=== PATIENT | female | born 1945 | race Caucasian/White ===

== ENCOUNTER → 2017-03-08 | Outpatient (CLI) | payer MEDICARE, OTHER ==
[~2017-03-08] MED LIST: ACE3 PO; ACYC800T99 PO; AMOX-559 PO; ASPI-1471 PO; AZIT-1 PO; BARIUM SULFATE 176 GM BTL PO ONE; BARIUM SULFATE 340 GM POWD ONE; BECL8.7H NS; BENZ200C15 PO; BUDE10.25; CEPH-13 PO; CHOL200022 PO; CHOL200074 PO; CHOL500025 PO; CIPR500S3 PO; DUL100/5PT INH; FAMC500T18 PO; FAMC500T19 PO; FERR325T24 PO; FLU180SY9 IM; HYDR200T38 PO; LACT1CAP6 PO; LEVO-85 PO; LEVO50TA86 PO; LIOT5TAB18 PO; METR-1 PO; MINO100C27 PO; MULT-865 PO; NO RX MEDS; OMEG-11 PO; ONDA4TAB PO; OXYGENHOME INH; PHYT100T4 PO; SUMA100T33 PO; SUMA50TA34 PO; THYR32.517 PO; UBID1CAP94 PO; VITA-131 PO; VITA1CAP46 PO
--- NOTE | 2017-03-08 15:53 | RADIOLOGY IMAGING REPORT ---
FACILITY: [facility] - [place] PATIENT NAME: Klaudia Pandey : 1945 MR: [id number] V: [id number] EXAM DATE: ORDERING PHYSICIAN: DILAN ROSSI TECHNOLOGIST: Location: [facility] [place] Patient: Klaudia Pandey : 1945 Visit/Account:[id number] Date of Sevice: 03/08/2017 Exam type: ESOPHAGRAM History: Chest esophageal reflux disease and esophagitis Comparison: None. Findings: There is hyperinflation lung hernandez bilaterally. Double contrast esophagram was performed with thick and thin barium. There is a mild mucosal irregularity seen along the anterior wall of the cervical esophagus. There was a moderate amount of gastroesophageal reflux. There is mild to moderate narrow ing at the distal esophagus however a 12 mm barium tablet did pass freely into the stomach. The fluo roscopy dose area product was 116.62 micro-Mendes per meter squared IMPRESSION: 1. Hyperinflation of the lung hernandez Moderate gastroesophageal reflux with mild to moderate narrowing at the distal esophagus however a 12 mm barium tablet did pass freely into the stomach There was mild mucosal irregularity seen along the anterior wall the cervical esophagus Report Dictated By: Paris Jett MD at 03/08/2017 3:45 PM Report E-Signed By: Paris Jett MD at 03/08/2017 3:49 PM WSN:[email or web address]
== END ==
LOC: RAD 02:54
PROVIDERS: ATTEND Otolaryngology
DX: R91.8 Other nonspecific abnormal finding of lung field (principal); K21.9 Gastro-esophageal reflux disease without esophagitis; K22.2 Esophageal obstruction
CPT/HCPCS: 74220

== ENCOUNTER → 2017-03-29 | Outpatient (CLI) | payer MEDICARE, OTHER ==
[~2017-03-29] MED LIST changes: -BARIUM SULFATE 176 GM BTL PO ONE; -BARIUM SULFATE 340 GM POWD ONE; +PANT40TA65 PO
== END ==
LOC: LAB 07:57
PROVIDERS: ATTEND Physician Assistant
DX: E03.9 Hypothyroidism, unspecified (principal)
CPT/HCPCS: 36415; 84439; 84443; 84481

== ENCOUNTER 2017-04-17 01:49 | Day surgery (SDC) | payer MEDICARE, OTHER ==
[2017-04-17] VITALS (7 sets, daily range): BP systolic 119–142; BP diastolic 73–83
[~2017-04-17] VITALS: Ht 165.1 cm; Wt 50.3 kg
[~2017-04-17 01:49] MED LIST changes: -HYDR200T38 PO; +HYDR200T77 PO
[2017-04-17] MEDS ORDERED: MIDAZOLAM 2 MG/2 ML VIAL IVP PRN (06:30)
[2017-04-17] MEDS ORDERED: LIDOCAINE MPF 1% 5 ML VIAL ONE (06:30)
[2017-04-17] MEDS ORDERED: NORMOSOL R SOLN(*) 1000 ML BAG 1,000 ML IV PRN (06:30)
[2017-04-17] MEDS ORDERED: LIDOCAINE/SOD BICARB 8.4% SYR ID ONE (06:30)
[2017-04-17] MEDS ORDERED: PROPOFOL EMUL(*) 10MG/ML 20 ML 60 ML ONE (06:30)
[2017-04-17] MEDS ORDERED: KETAMINE HCL 500 MG/10 ML VIAL ONE (07:29)
--- NOTE | 2017-04-17 07:52 | Short(Outpt) Discharge Summary ---
Discharge Summary Reason for Hosp/Final Diag: (1) Cough Status: Acute Hospital Course & Plan: EGD with dilation and biopsies completed without problems. (2) GERD (gastroesophageal reflux disease) Status: Chronic Departure Discharge to: Home, Self Care Discharge Instructions Home Meds Active Scripts Pantoprazole Sodium (PANTOPRAZOLE SODIUM) 40 Mg Tablet.dr, 40 MG PO QDAY for 30 Days, #30 TAB.SR 6 Refills Prov:DILAN ROSSI JR, MD 03/13/17 Levothyroxine Sodium (LEVOTHYROXINE SODIUM) 50 Mcg Tablet, 1 TAB PO QDAY for 90 Days, #90 TAB 4 Refills Prov:STACIA SWAIN MD 02/22/17 Sumatriptan Succinate (SUMATRIPTAN SUCCINATE) 100 Mg Tablet, 1 TAB PO ONCE Y for migraine for 30 Days, #9 TAB 4 Refills Prov:STACIA SWAIN MD 02/22/17 Reported Medications Liothyronine Sodium (CYTOMEL) 5 Mcg Tablet, 5 MCG PO DAILY 04/10/17 Oxygen (OXYGEN) Inha, 2 L INH HS, L 12/06/16 Minocycline Hcl (MINOCYCLINE HCL) 100 Mg Capsule, 1 CAP PO DAILY, CAPSULE 12/06/16 Cholecalciferol (Vitamin D3) (VITAMIN D-3) 2,000 Unit Capsule, 1 CAP PO BID, CAPSULE 12/15/14 Vitamin B Complex (VITAMIN B COMPLEX) 1 Each Capsule, 1 EACH PO DAILY, CAPSULE 05/28/14 [place]-3 Fatty Acids/Fish Oil (FISH OIL 1,000 MG CAPSULE) 1 Each Capsule, 1 CAP PO BID, CAPSULE 11/11/13 Multivitamin (DAILY MULTIPLE VITAMIN) 1 Each Tablet, 1 TAB PO DAILY 11/11/13 Ubidecarenone/Vit E Acetate (CO Q-10 100 MG SOFTGEL) 1 Each Capsule, 1 CAP PO DAILY, CAPSULE 11/11/13 Discontinued Scripts Famciclovir (FAMCICLOVIR) 500 Mg Tablet, 500 MG PO TID for 7 Days, #21 TAB 0 Refills Prov:STACIA SWAIN MD 02/22/17 Follow up Referrals: General Surgery - 05/03/17 @ Surgery, General with Candida Delvalle Md You have a follow up appointment scheduled with Dr. Delvalle on 05/03/17, at 11:00am. Diet: Regular Activity: As Tolerated Special Instructions: Your endoscopy was completed without any problems. I didn't find anything obviously abnormal but I biopsied your GE junction where your esophagus empties into your stomach to rule out Goodwin's esophagus. I also passed a dilater through your esophagus and it passed without any resistance or problems. Continue taking the pantoprazole (protonix) until I see you back in my office in 2 weeks. Problem Qualifiers (1) GERD (gastroesophageal reflux disease): Esophagitis presence: without esophagitis Qualified Codes: K21.9 - Gastro- esophageal reflux disease without esophagitis CANDIDA DELVALLE MD Apr 17, 2017 07:52
[2017-04-17] MEDS ORDERED: ALBUTEROL/IPRATROPIUM 3 ML NEB ONE (08:52)
--- NOTE | 2017-04-17 09:21 | EKG ---
FACILITY: [facility] [place] PATIENT NAME: GREGORIO FREY : [id number] MR: [id number] V: [id number] EXAM DATE: ORDERING PHYSICIAN: CANDIDA DELVALLE TECHNOLOGIST: Kaiser Green Reason : PREOP Blood Pressure : / mmHG Vent. Rate : 085 BPM Atrial Rate : 085 BPM P-R Int : 184 ms QRS Dur : 064 ms QT Int : 374 ms P-R-T Axes : 090 -57 030 degrees QTc Int : 445 ms Normal sinus rhythm Left axis deviation Low voltage QRS Cannot rule out Anteroseptal infarct (cited on or before 17-OCT-2012) Abnormal ECG When compared with ECG of 22-APR-2014 10:39, QRS axis shifted left Questionable change in initial forces of Anteroseptal leads Nonspecific T wave abnormality now evident in Anterior leads Confirmed by ALIREZA BELCHER ([id number]) on 04/17/2017 12:32:58 PM Referred By: Confirmed By:ALIREZA BELCHER
== END 2017-04-17 09:37 | disposition home or self-care (01) ==
LOC: OR 01:49
PROVIDERS: ATTEND Surgery
DX: K44.9 Diaphragmatic hernia without obstruction or gangrene (principal)
CPT/HCPCS: 43239; 43248; 88305; 93005; 94640; C1769; J2001; J2704; J3490; J7620

== ENCOUNTER → 2017-05-24 | Outpatient (CLI) | payer MEDICARE, OTHER ==
[~2017-05-24] MED LIST changes: +BENZ100C4 PO; +IPRA3AMP21 IH
[2017-05-24 14:21] LABS: PLATELET COUNT, AUTOMATED 206 K/uL (150-450)
== END ==
LOC: LAB 13:53
PROVIDERS: ATTEND Family Medicine
DX: J06.9 Acute upper respiratory infection, unspecified (principal)
CPT/HCPCS: 36415; 82040; 82247; 82310; 82374; 82435; 82565; 82947; 84075; 84132; 84155; 84295; 84450; 84460; 84520; 85025

== ENCOUNTER → 2017-06-04 | Outpatient (CLI) | payer MEDICARE, OTHER | LOC: LAB 08:09 | PROVIDERS: ATTEND Family Medicine | DX: R53.83 Other fatigue (principal) | CPT/HCPCS: 36415; 84439; 84443; 84481 ==

== ENCOUNTER → 2017-11-29 | Outpatient (CLI) | payer MEDICARE, OTHER ==
[~2017-11-29] MED LIST changes: -CHOL200022 PO; +CHOL200085 PO; +IPRA3AMP10 IH; -IPRA3AMP21 IH; +ZOLM2.5T FT; +ZOLM5TAB3 PO
== END ==
LOC: LAB 11:04
PROVIDERS: ATTEND Family Medicine
DX: R73.09 Other abnormal glucose (principal)
CPT/HCPCS: 83036

== ENCOUNTER → 2017-11-29 | Outpatient (CLI) | payer MEDICARE, OTHER | LOC: LAB 11:08 | PROVIDERS: ATTEND Physician Assistant | DX: Z00.01 Encounter for general adult medical examination with abnormal findings (principal); E03.9 Hypothyroidism, unspecified | CPT/HCPCS: 36415; 84439; 84443; 84481 ==

== ENCOUNTER → 2017-12-20 | Outpatient (CLI) | payer MEDICARE, OTHER ==
--- NOTE | 2017-12-20 12:17 | RADIOLOGY IMAGING REPORT ---
FACILITY: [facility] - [place] PATIENT NAME: Klaudia Pandey : 1945 MR: [id number] V: [id number] EXAM DATE: ORDERING PHYSICIAN: KATRIN MONROE TECHNOLOGIST: Location: [facility] Patient: Klaudia Pandey : 1945 Visit/Account:[id number] Date of Sevice: 12/20/2017 BRAIN W/O CONTRAST Comparisons: None. Additional pertinent history: Migraine headaches with aura TECHNIQUE: Multiplanar, multisequence brain MRI was performed without gadolinium contrast. FINDINGS: Sagittal midline structures and craniocervical junction: Negative. Midline shift: None. Ventricles: Negative. Brain parenchyma: Diffusion weighted imaging: Negative. Gradient sequence: Negative. T2 weighted FLAIR images: Scattered foci of abnormal increased T2 signal within the periventricular and subcortical white matter, nonspecific but likely representing small vessel ischemic change on a chronic basis. Extra-axial spaces: Mild cerebral atrophy. Dural venous sinuses and major arterial flow voids: Negative. Mastoid air cells and paranasal sinuses: Negative. Surrounding soft tissues and orbits: Negative. Impression: 1. Mild age related changes as described above. 2. No evidence of acute intracranial pathology. Report Dictated By: Lloyd Gray MD at 12/20/2017 12:11 PM Report E-Signed By: Lloyd Gray MD at 12/20/2017 12:13 PM WSN:[email or web address]
== END ==
LOC: MRI 10:38
PROVIDERS: ATTEND Psychiatry & Neurology Neurology
DX: R42 Dizziness and giddiness (principal); Z85.6 Personal history of leukemia
CPT/HCPCS: 70551

== ENCOUNTER → 2017-12-27 | Outpatient (CLI) | payer MEDICARE, OTHER ==
[~2017-12-27] MED LIST changes: +ASPI-757 PO; +CALC500T6 PO; +CHOL500016 PO; +FLU180SY11 IM; +OXYC-865 PO; +PNEU0.5D3 IM; +[UNRECOGNIZED DRUG - CODE] IV
== END ==
LOC: RESP 00:25
PROVIDERS: ATTEND Psychiatry & Neurology Neurology
DX: G47.30 Sleep apnea, unspecified (principal); G47.36 Sleep related hypoventilation in conditions classified elsewhere

== ENCOUNTER 2018-01-02 20:02 | Inpatient (IN) | payer MEDICARE, OTHER ==
[~2018-01-02] VITALS: Ht 165.1 cm; Wt 53.1 kg
[~2018-01-02 20:02] MED LIST changes: -ASPI-757 PO; -CALC500T6 PO; -CHOL500016 PO; -OXYC-865 PO; -[UNRECOGNIZED DRUG - CODE] IV
--- NOTE | 2018-01-02 20:16 | ER Report ---
History and Physical Time Seen By MD: 20:16 Hx. of Stated Complaint: around 1900 patient was at [facility] [email or web address] party and fell from standing HPI/ROS CHIEF COMPLAINT: fall, hip pain HISTORY OF PRESENT ILLNESS: This is a 72 year old female. She fell at a family birthday [place] party [place]. Fell onto right hip, now with severe pain. Pain severe with movement, but not bad if lying still. No pain in the leg or back. Has norm al sensation. Allergies: Coded Allergies: No Known Drug Allergies (Verified , 03/31/15) Home Meds Active Scripts Zolmitriptan (ZOLMITRIPTAN) 5 Mg Tablet, 2.5-5 MG PO DAILY PRN for MIGRAINE for 30 Days, #3 TAB Prov:STACIA SWAIN MD 07/23/17 Ipratropium/Albuterol Sulfate (IPRAT-ALBUT 0.5-3(2.5) MG/3 ML) 3 Ml Ampul.neb, 3 ML IH BID for 7 Days, #14 PETER Prov:STACIA SWAIN MD 05/24/17 Levothyroxine Sodium (LEVOTHYROXINE SODIUM) 50 Mcg Tablet, 1 TAB PO QDAY for 90 Days, #90 TAB 4 Refills Prov:STACIA SWAIN MD 02/22/17 Sumatriptan Succinate (SUMATRIPTAN SUCCINATE) 100 Mg Tablet, 1 TAB PO ONCE PRN for migraine for 30 Days, #9 TAB 4 Refills Prov:STACIA SWAIN MD 02/22/17 Reported Medications Liothyronine Sodium (LIOTHYRONINE SODIUM) 10 Mcg/1 Ml Vial, 10 MCG IV, VIAL 01/02/18 Oxygen (OXYGEN) Inha, 2 L INH HS, L 12/06/16 Cholecalciferol (Vitamin D3) (VITAMIN D-3) 2,000 Unit Capsule, 1 CAP PO BID, CAPSULE 12/15/14 [place]-3 Fatty Acids/Fish Oil (FISH OIL 1,000 MG CAPSULE) 1 Each Capsule, 1 CAP P O BID, CAPSULE 11/11/13 Multivitamin (DAILY MULTIPLE VITAMIN) 1 Each Tablet, 1 TAB PO DAILY 11/11/13 Ubidecarenone/Vit E Acetate (CO Q-10 100 MG SOFTGEL) 1 Each Capsule, 1 CAP PO DAILY, CAPSULE 11/11/13 Discontinued Reported Medications Liothyronine Sodium (CYTOMEL) 5 Mcg Tablet, 5 MCG PO DAILY 04/10/17 Minocycline Hcl (MINOCYCLINE HCL) 100 Mg Capsule, 1 CAP PO DAILY, CAPSULE 12/06/16 Vitamin B Complex (VITAMIN B COMPLEX) 1 Each Capsule, 1 EACH PO DAILY, CAPSULE 05/28/14 Discontinued Scripts Benzonatate 100 Mg Cap (TESSALON PERLE 100 MG CAP) 100 Mg Capsule, 100 MG PO TID PRN for cough for 5 Days, #15 CAP Prov:STACIA SWAIN MD 05/24/17 Reviewed Nurses Notes: Yes Hx Smoking: No Smoking Status: Never Smoker Hx Substance Use Disorder: No Hx Alcohol Use: No Constitutional Vital Sign - Last 24 Hours 01/02/18 01/02/18 01/02/18 01/02/18 20:08 20:08 20:26 20:30 Temp 99.2 Pulse 121 Resp 19 B/P (MAP) 166/102 (123) 166/102 152/92 (112) 142/87 (105) Pulse Ox 92 O2 Delivery Room Air 01/02/18 01/02/18 01/02/18 01/02/18 20:32 21:00 21:02 21:07 Pulse 102 101 102 B/P (MAP) 150/90 (110) Pulse Ox 93 92 92 01/02/18 01/02/18 01/02/18 01/02/18 21:30 21:37 22:00 22:07 Pulse 119 135 B/P (MAP) 136/99 (111) 153/97 (115) Pulse Ox 91 93 Physical Exam General: Alert, no acute distress. Musculoskeletal: Pain with palpation over the right hip, anterior and posterior, no pain lower in the thigh. Normal pelvis without stability. Can move the leg and foot, but worsened pain with any attempted movement of the hip. Neuro: Normal sensation. Skin: No skin breakdown. Cardiovascular: Normal capillary refill. Normal DP and PT pulses. Medical Decision Making Data Points Result Diagram: 01/02/18201201/02/182012 Laboratory Hematology Test 01/02/18 20:13 Red Blood Count 5.23 M/uL (4.17-5.56) Mean Corpuscular Volume 90.4 fL (80.0-96.0) Mean Corpuscular Hemoglobin 30.0 pg (26.0-33.0) Mean Corpuscular Hemoglobin Concent 33.2 g/dL (32.0-36.0) Red Cell Distribution Width 14.2 % (11.5-14.5) Mean Platelet Volume 10.1 fL (7.2-11.1) Neutrophils (%) (Auto) % (39.4-72.5) Lymphocytes (%) (Auto) % (17.6-49.6) Monocytes (%) (Auto) % (4.1-12.4) Eosinophils (%) (Auto) % (0.4-6.7) Basophils (%) (Auto) % (0.3-1.4) Nucleated RBC Relative Count (auto) /100WBC Neutrophils # (Auto) K/uL (2.0-7.4) Lymphocytes # (Auto) K/uL (1.3-3.6) Monocytes # (Auto) K/uL (0.3-1.0) Eosinophils # (Auto) K/uL (0.0-0.5) Basophils # (Auto) K/uL (0.0-0.1) Nucleated RBC Absolute Count (auto) K/uL Neutrophils % (Manual) 39 % (39.4-72.5) Lymphocytes % (Manual) 36 % (17.6-49.6) Atypical Lymphocytes % 17 % Monocytes % (Manual) 8 % (4.1-12.4) Eosinophils % (Manual) 0 % (0.4-6.7) Basophils % (Manual) 0 % (0.3-1.4) Smudge Cells Pres Peripheral Blood Smear Yes Y/N Prothrombin Time 12.4 seconds (12.0-14.4) Prothromb Time International Ratio 0.92 Activated Partial Thromboplast Time 25 seconds (23-35) Sodium Level 138 mmol/L (137-145) Potassium Level 3.6 mmol/L (3.5-5.0) Chloride Level 99 mmol/L (98-107) Carbon Dioxide Level 27 mmol/L (22-31) Blood Urea Nitrogen 24 mg/dl (7-18) Creatinine 0.80 mg/dl (0.52-1.04) Glomerular Filtration Rate Calc > 60.0 Random Glucose 112 mg/dl (75-110) Calcium Level 9.1 mg/dl (8.4-10.2) Total Bilirubin 0.4 mg/dl (0.2-1.3) Aspartate Amino Transf (AST/SGOT) 38 U/L (0-35) Alanine Aminotransferase (ALT/SGPT) 26 U/L (0-56) Alkaline Phosphatase 80 U/L (0-126) Total Protein 7.4 g/dl (6.3-8.2) Albumin 4.4 g/dl (3.5-5.0) Chemistry Test 01/02/18 20:13 White Blood Count 24.5 k/uL (4.5-11.0) Red Blood Count 5.23 M/uL (4.17-5.56) Hemoglobin 15.7 g/dL (12.0-16.0) Hematocrit 47.2 % (34.0-47.0) Mean Corpuscular Volume 90.4 fL (80.0-96.0) Mean Corpuscular Hemoglobin 30.0 pg (26.0-33.0) Mean Corpuscular Hemoglobin Concent 33.2 g/dL (32.0-36.0) Red Cell Distribution Width 14.2 % (11.5-14.5) Platelet Count 195 K/uL (150-450) Mean Platelet Volume 10.1 fL (7.2-11.1) Neutrophils (%) (Auto) % (39.4-72.5) Lymphocytes (%) (Auto) % (17.6-49.6) Monocytes (%) (Auto) % (4.1-12.4) Eosinophils (%) (Auto) % (0.4-6.7) Basophils (%) (Auto) % (0.3-1.4) Nucleated RBC Relative Count (auto) /100WBC Neutrophils # (Auto) K/uL (2.0-7.4) Lymphocytes # (Auto) K/uL (1.3-3.6) Monocytes # (Auto) K/uL (0.3-1.0) Eosinophils # (Auto) K/uL (0.0-0.5) Basophils # (Auto) K/uL (0.0-0.1) Nucleated RBC Absolute Count (auto) K/uL Neutrophils % (Manual) 39 % (39.4-72.5) Lymphocytes % (Manual) 36 % (17.6-49.6) Atypical Lymphocytes % 17 % Monocytes % (Manual) 8 % (4.1-12.4) Eosinophils % (Manual) 0 % (0.4-6.7) Basophils % (Manual) 0 % (0.3-1.4) Smudge Cells Pres Peripheral Blood Smear Yes Y/N Prothrombin Time 12.4 seconds (12.0-14.4) Prothromb Time International Ratio 0.92 Activated Partial Thromboplast Time 25 seconds (23-35) Glomerular Filtration Rate Calc > 60.0 Calcium Level 9.1 mg/dl (8.4-10.2) Total Bilirubin 0.4 mg/dl (0.2-1.3) Aspartate Amino Transf (AST/SGOT) 38 U/L (0-35) Alanine Aminotransferase (ALT/SGPT) 26 U/L (0-56) Alkaline Phosphatase 80 U/L (0-126) Total Protein 7.4 g/dl (6.3-8.2) Albumin 4.4 g/dl (3.5-5.0) Coagulation Test 01/02/18 20:13 Prothrombin Time 12.4 seconds Prothromb Time International Ratio 0.92 Activated Partial Thromboplast Time 25 seconds EKG/Imaging EKG Interpretation 12 lead EKG: Rhythm: Sinus rhythm with PVCs, rate 111. [place]: Left axis QRS: normal ST segments: None to see elevation or depression Imaging RIGHT HIP: Indication: Injury. Technique: Two views were obtained. Comparison: None. Findings: There is an impacted fracture of the femoral neck. The femoral head appears intact, and there is no evidence of dislocation. There is underlying osteoarthritic joint space narrowing. No additional fractures are identified in the pelvis. There is uniform mineralization. The soft tissues are unremarkable, as visualized. IMPRESSION: Acute fracture of the right femoral neck. No evidence of dislocation. Report Dictated By: Gerardo Pritchett MD at 01/02/2018 9:08 PM PORTABLE CHEST: Indication: Preoperative evaluation for hip surgery. Technique: A single frontal film was obtained. Comparison: 03/31/2015 Skeletal and soft tissue structures: Intact and unremarkable. No acute skeletal deformity. Heart and mediastinum: Within normal limits. Lung hernandez: Well-expanded. There are mild increased interstitial markings. No acute process is identified. Pleural spaces: Unremarkable. Impression: No acute process or significant change. Report Dictated By: Gerardo Pritchett MD at 01/02/2018 10:14 PM ED Course/Re-evaluation ED Course Discussed the case with Dr. Vasquez, orthopedic surgery, who viewed the images online. I also talked to Dr. Vazquez-Seng, to admit the patient tonight. The patient be kept nothing by mouth after midnight. Clearance work-up to be done anticipating surgery tomorrow. Decision to Disposition Date: Jan 02, 2018 Decision to Disposition Time: 22:01 Depart Departure Latest Vital Signs Vital Signs Date Time Temp Pulse Resp B/P (MAP) Pulse Ox O2 Delivery O2 Flow Rate FiO2 01/02/18 22:07 135 93 01/02/18 22:00 153/97 (115) 01/02/18 20:08 99.2 19 Room Air Impression: Primary Impression: Femoral neck fracture Condition: Condition Unchanged Disposition: Admitted from ER Referrals: STACIA SWAIN MD (PCP) Problem Qualifiers Primary Impression: Femoral neck fracture Encounter type: initial encounter Fracture type: closed Laterality: right Qualified Codes: S72.001A - Fracture of unspecified part of neck of right femur, initial encounter for closed fracture CORY KERN MD Jan 02, 2018 20:16
[2018-01-02] MEDS ORDERED: [UNRECOGNIZED DRUG - CODE] IV (20:25)
--- NOTE | 2018-01-02 21:16 | RADIOLOGY IMAGING REPORT ---
FACILITY: [facility] [place] PATIENT NAME: Klaudia Pandey : 1945 MR: [id number] V: [id number] EXAM DATE: ORDERING PHYSICIAN: CORY KERN TECHNOLOGIST: Location: [facility] Patient: Klaudia Pandey : 1945 Visit/Account:[id number] Date of Sevice: 01/02/2018 RIGHT HIP: Indication: Injury. Technique: Two views were obtained. Comparison: None. Findings: There is an impacted fracture of the femoral neck. The femoral head appears intact, and the re is no evidence of dislocation. There is underlying osteoarthritic joint space narrowing. No additional fractures are identified in the pelvis. There is uniform mineralization. The soft tissu es are unremarkable, as visualized. IMPRESSION: Acute fracture of the right femoral neck. No evidence of dislocation. Report Dictated By: Gerardo Pritchett MD at 01/02/2018 9:08 PM Report E-Signed By: Gerardo Pritchett MD at 01/02/2018 9:12 PM WSN:[id number]
[2018-01-02 21:42] LABS: PLATELET COUNT, AUTOMATED 195 K/uL (150-450)
[2018-01-02 21:47] LABS: INR 0.92
--- NOTE | 2018-01-02 21:59 | EKG ---
FACILITY: [facility] - [place] PATIENT NAME: GREGORIO FREY : [id number] MR: [id number] V: [id number] EXAM DATE: ORDERING PHYSICIAN: CORY KERN TECHNOLOGIST: JENNIFER Green Reason : Blood Pressure : / mmHG Vent. Rate : 111 BPM Atrial Rate : 111 BPM P-R Int : 168 ms QRS Dur : 080 ms QT Int : 350 ms P-R-T Axes : 082 -53 053 degrees QTc Int : 476 ms Normal sinus rhythm with PVC's Left axis deviation Septal infarct (cited on or before 17-OCT-2012) Abnormal ECG When compared with ECG of 17-APR-2017 09:02, Nonspecific T wave abnormality no longer evident in Anterior leads Confirmed by Luis Linares ([id number]) on 01/03/2018 12:34:34 AM Referred By: Confirmed By:Luis Ellsworth
--- NOTE | 2018-01-02 22:20 | RADIOLOGY IMAGING REPORT ---
FACILITY: [facility] PATIENT NAME: Klaudia Pandey : 1945 MR: [id number] V: [id number] EXAM DATE: [id number] ORDERING PHYSICIAN: CORY KERN TECHNOLOGIST: Location: [facility] - [place] Patient: Klaudia Pandey : 1945 Visit/Account:[id number] Date of Sevice: 01/02/2018 PORTABLE CHEST: Indication: Preoperative evaluation for hip surgery. Technique: A single frontal film was obtained. Comparison: 03/31/2015 Skeletal and soft tissue structures: Intact and unremarkable. No acute skeletal deformity. Heart and mediastinum: Within normal limits. Lung hernandez: Well-expanded. There are mild increased interstitial markings. No acute process is ident ified. Pleural spaces: Unremarkable. Impression: No acute process or significant change. Report Dictated By: Gerardo Pritchett MD at 01/02/2018 10:14 PM Report E-Signed By: Gerardo Pritchett MD at 01/02/2018 10:16 PM WSN:[id number]
[2018-01-02] MEDS ORDERED: ONDANSETRON 4 MG/2 ML VIAL IVP PRN (22:40)
[2018-01-02] MEDS ORDERED: FLUSH 10 ML SYR IVP PRN (22:40)
[2018-01-02] MEDS ORDERED: INFLUENZA VIRUS VAC 0.5ML SYR IM ONLY ONE (22:40)
[2018-01-02] MEDS ORDERED: ALBUTEROL/IPRATROPIUM 3 ML NEB NEB PRN (22:40)
[2018-01-02] MEDS ORDERED: ACETAMINOPHEN 325 MG TAB PO PRN (22:40)
[2018-01-02 23:39] VITALS: BP 145/89
[2018-01-03] VITALS (23 sets, daily range): BP systolic 74–135; BP diastolic 44–82; Ht 165.1 cm; Wt 53.1 kg
[2018-01-03] MEDS ORDERED: HYDROmorphone HCL 2 MG/ML SDV IVP PRN (00:05)
--- NOTE | 2018-01-03 00:29 | History & Physical ---
History of Present Illness Chief Complaint R hip pain after fall. History of Present Illness 72F presented R hip pain after fall. PMHx significant for CLL, osteoporosis, asthma. Was at granddaughters birthday mathews when walking behind chair she caught foot and twisted wrong. Immediate pain on landing on hip. Reports sensitivity to narcotic pain medications previously some nausea. History Problems: (1) Osteoporosis Status: Chronic (2) Chronic lymphoid leukemia Status: Chronic (3) Migraine without aura Status: Chronic Home Meds Active Scripts Zolmitriptan (ZOLMITRIPTAN) 5 Mg Tablet, 2.5-5 MG PO DAILY PRN for MIGRAINE for 30 Days, #3 TAB Prov:STACIA SWAIN MD 07/23/17 Ipratropium/Albuterol Sulfate (IPRAT-ALBUT 0.5-3(2.5) MG/3 ML) 3 Ml Ampul.neb, 3 ML IH BID for 7 Days, #14 PETER Prov:STACIA SWAIN MD 05/24/17 Levothyroxine Sodium (LEVOTHYROXINE SODIUM) 50 Mcg Tablet, 1 TAB PO QDAY for 90 Days, #90 TAB 4 Refills Prov:STACIA SWAIN MD 02/22/17 Sumatriptan Succinate (SUMATRIPTAN SUCCINATE) 100 Mg Tablet, 1 TAB PO ONCE PRN for migraine for 30 Days, #9 TAB 4 Refills Prov:STACIA SWAIN MD 02/22/17 Reported Medications Liothyronine Sodium (LIOTHYRONINE SODIUM) 10 Mcg/1 Ml Vial, 10 MCG IV, VIAL 01/02/18 Oxygen (OXYGEN) Inha, 2 L INH HS, L 12/06/16 Cholecalciferol (Vitamin D3) (VITAMIN D-3) 2,000 Unit Capsule, 1 CAP PO BID, CAPSULE 12/15/14 [place]-3 Fatty Acids/Fish Oil (FISH OIL 1,000 MG CAPSULE) 1 Each Capsule, 1 CAP PO BID, CAPSULE 11/11/13 Multivitamin (DAILY MULTIPLE VITAMIN) 1 Each Tablet, 1 TAB PO DAILY 11/11/13 Ubidecarenone/Vit E Acetate (CO Q-10 100 MG SOFTGEL) 1 Each Capsule, 1 CAP PO DAILY, CAPSULE 11/11/13 Discontinued Reported Medications Liothyronine Sodium (CYTOMEL) 5 Mcg Tablet, 5 MCG PO DAILY 04/10/17 Minocycline Hcl (MINOCYCLINE HCL) 100 Mg Capsule, 1 CAP PO DAILY, CAPSULE 12/06/16 Vitamin B Complex (VITAMIN B COMPLEX) 1 Each Capsule, 1 EACH PO DAILY, CAPSULE 05/28/14 Discontinued Scripts Benzonatate 100 Mg Cap (TESSALON PERLE 100 MG CAP) 100 Mg Capsule, 100 MG PO TID PRN for cough for 5 Days, #15 CAP Prov:STACIA SWAIN MD 05/24/17 Allergies: Coded Allergies: No Known Drug Allergies (Verified , 03/31/15) Patient History: Atherosclerosis PATERNAL GRANDFATHER, , Age:83 Goodwin's esophagus Goodwin's esophagus Cervical cancer FH: cancer MATERNAL GRANDMOTHER, , Age:93 (INTESTINAL) FH: lung cancer FATHER, , Age:69 FH: renal cell carcinoma MOTHER, , Age:89 FH: thyroid cancer BROTHER OR SISTER (in 20's) FHx: stroke MOTHER, , Age:89 MATERNAL GRANDFATHER, , Age:70 Osteoarthritis MOTHER, , Age:89 BROTHER OR SISTER Hx Smoking: No Smoking Status: Never Smoker Caffeine Intake: Tea Caffeine/Cups Per Day: 1/DAY Hx Alcohol Use: No Hx Substance Use Disorder: No Review of Systems All Systems Reviewed/Normal: Yes, Except as Noted Constitutional: No Weight Loss, No Weight Gain Neurological: No Syncope Respiratory: Cough; No Shortness of Breath Gastrointestinal: No Nausea, No Vomiting Musculoskeletal: Pain Exam Vital Signs Vital Signs Date Time Temp Pulse Resp B/P (MAP) Pulse Ox O2 Delivery O2 Flow Rate FiO2 01/02/18 23:39 99.7 120 15 145/89 (107) 93 01/02/18 20:08 Room Air General Appearance: Alert, Awake, No Acute Distress Neuro: No Gross deficits Eyes: PERRLA ENT: Normal Neck: No Masses Cardiovascular: Other (tachycardia) Respiratory: No Respiratory Distress GI: Abd Soft and Non-Tender Musculoskeletal: Other (+ R hip pain) Extremities: Soft and Non Tender, Warm, Pulses, Perfused; No Edema Integumentary: Skin Intact without Lesion / Mass Psych: Alert & Oriented X3 Medical Decision Making Data Points Result Diagram: 01/02/18201201/02/182012 Assessment and Plan Problems: (1) Closed right hip fracture Assessment & Plan: Pre op labs, EKG, CXR pending. Possible surgical repair tomorrow, maintain NPO. (2) Osteoporosis Status: Chronic Assessment & Plan: Likely contributed to hip Fx. (3) Chronic lymphoid leukemia Status: Chronic Assessment & Plan: Stable. Likely cause of leukocytosis. (4) Hypothyroidism, unspecified Assessment & Plan: On chronic levothyroxine. Venous Thromboembolism Antithrombotics Is Pt On Any Antithrombotics?: Yes (SCD only) Exam Sepsis Risk: No Definite Risk PAINTING ADÁN QUINTERO DO Jan 03, 2018 00:29
[2018-01-03] MEDS: HYDROmorphone HCL 2 MG/ML SDV IVP PRN ×3 (00:48→09:10)
[2018-01-03] MEDS ORDERED: CHOL500016 PO (01:21)
[2018-01-03] MEDS ORDERED: LIOT5TAB18 PO (01:21)
[2018-01-03] MEDS ORDERED: CALC500T6 PO (01:24)
[2018-01-03 06:05] LABS: PLATELET COUNT, AUTOMATED 151 K/uL (150-450)
[2018-01-03] MEDS: LEVOTHYROXINE SOD 0.05 MG TAB PO SCH (06:08)
[2018-01-03] MEDS: LIOTHYRONINE SODIUM 5 MCG TAB PO SCH (09:00)
[2018-01-03] MEDS ORDERED: NS(*) 0.9% 1000 ML BAG 1,000 ML IV PRN (09:30)
[2018-01-03] MEDS ORDERED: NORMOSOL R SOLN(*) 1000 ML BAG 1,000 ML IV ONE (10:23)
[2018-01-03] MEDS ORDERED: FAMOTIDINE 20 MG TAB ONE (11:05)
[2018-01-03] MEDS ORDERED: ceFAZolin(*) 1 GM VIAL 1 GM in NS(*) 0.9% 100 ML ADDVANT BAG 100 ML IVPB ONE (11:05)
[2018-01-03] MEDS ORDERED: cloNIDine EPIDUR INJ 100MCG/ML 40 MCG, ROPIVACAINE 0.5% 20 ML VIAL 25 ML, EPINEPHrine H... INJ ONE (11:05)
[2018-01-03] MEDS ORDERED: TRANEXAMIC AC 1000 MG/10ML SDV 1,000 MG in DEXTROSE 5% 50 ML BAG 50 ML IV ONE (11:05)
[2018-01-03] MEDS ORDERED: FAMOTIDINE(*) 20MG/50ML PREMIX 50 ML IVPB ONE ×2 (11:19→11:35)
[2018-01-03] MEDS ORDERED: fentaNYL CITR 100 MCG/2 ML AMP ONE ×3 (11:33→15:33)
[2018-01-03] MEDS ORDERED: PROPOFOL EMUL(*) 10MG/ML 20 ML 20 ML ONE (11:34)
[2018-01-03] MEDS ORDERED: LIDOCAINE MPF 1% 5 ML VIAL ONE ×2 (11:34→11:46)
[2018-01-03] MEDS ORDERED: EPINEPHrine HCL 1 MG/ML AMP ONE (11:41)
[2018-01-03] MEDS ORDERED: ROPIVACAINE 0.2% 20 ML VIAL ONE ×2 (11:46→11:50)
--- NOTE | 2018-01-03 11:51 | Hospitalist Progress Note ---
Subjective Progress Notes Subjective No cp/sob. Physical Exam Vital Signs Date Time Temp Pulse Resp B/P (MAP) Pulse Ox O2 Delivery O2 Flow Rate FiO2 01/03/18 07:11 98.9 101 16 122/72 (89) 96 Nasal Cannula 01/03/18 05:50 1.0 Intake and Output 01/03/18 07:00 # Voids 1 General Appearance: Alert, Awake, No Acute Distress Cardiovascular: Regular Rate and Rhythm Respiratory: Clear to Auscultation Extremities: No Edema Result Diagram: 01/03/1852701/03/18527 Assessment and Plan Problems: (1) Closed right hip fracture Assessment & Plan: She has been cleared for surgery. Surgery is planned this afternoon. She will need blood clot prevention starting tomorrow. (2) Osteoporosis Status: Chronic Assessment & Plan: Likely contributed to hip Fx. (3) Chronic lymphoid leukemia Status: Chronic Assessment & Plan: Stable. Likely cause of leukocytosis. Will follow. (4) Hypothyroidism, unspecified Assessment & Plan: On chronic levothyroxine. Exam Sepsis Risk: No Definite Risk ALIREZA BELCHER MD Jan 03, 2018 11:50
[2018-01-03] MEDS ORDERED: DEXAMETHASONE SOD 4 MG/ML VIAL ONE (11:53)
[2018-01-03] MEDS ORDERED: DEXAMETHASONE SOD PHOS 10MG/ML ONE (11:53)
[2018-01-03] MEDS ORDERED: MIDAZOLAM 2 MG/2 ML VIAL IVP PRN (12:30)
[2018-01-03] MEDS ORDERED: VANCOMYCIN 1 GM VIAL ONE (13:08)
[2018-01-03] MEDS ORDERED: ROCURONIUM BROM 10 MG/ML 10 ML ONE (13:15)
[2018-01-03] MEDS ORDERED: ONDANSETRON 4 MG/2 ML VIAL ONE (13:41)
--- NOTE | 2018-01-03 14:02 | CONSULTATION ---
EVENT DATE: January 03, 2018 HISTORY I was asked by the hospitalist to evaluate this pleasant 72-year-old woman with a chief complaint of right hip pain. HISTORY OF PRESENT ILLNESS The patient stumbled yesterday at her daughter's restaurant and fell with an isolated injury to her right lower extremity. She had immediate hip and thigh pain and inability to bear weight. She was brought in and noted to have a hip fracture, admitted to the hospitalist service. PAST MEDICAL HISTORY 1. Notable for Goodwin's esophagus. 2. History of cervical cancer. 3. Borderline blood pressure. 4. Reactive airway disease. PAST SURGICAL HISTORY 1. Notable for knee scope. FAMILY HISTORY Notable for stroke in her mother who also had thyroid cancer. Father with renal cell carcinoma. SOCIAL HISTORY Negative for tobacco use. She does not drink alcohol. She denies drug abuse. REVIEW OF SYSTEMS Noncontributory. Her other medications, past major medical and issues are noted by the hospitalist in his admission History and Physical. ALLERGIES No known drug allergies. PHYSICAL EXAMINATION GENERAL: This is a healthy fit woman and appears stated age. HEENT: Normocephalic, atraumatic. NECK: Supple. LUNGS: Clear. HEART: Regular rate and rhythm. ABDOMEN: Soft. ORTHOPEDIC EXAMINATION The right hip is shorten and externally rotated. She is unable to move the hip actively. Skin on both is intact. Swelling in minimal. Calf is nontender. Neurovascular function is intact distally. RADIOGRAPHS Her plain radiographs demonstrate a substantially angulated and mildly displaced subcapital femoral neck fracture. The head is posteriorly angulated relative to the shaft fragment and it is shortened and in valgus. ASSESSMENT Closed right subcapital femoral neck fracture moderately angulated and mildly displaced. PLAN I discussed the options at length with the patient and family. The options would include closed reduction, percutaneous screw fixation, but due to osteoporosis, age and higher risk of a secondary surgery, this may not be the optimal option. Given the lack of underlying arthritis, I would recommend hemiarthroplasty with a cemented stem as the option that offers the lowest risk of a secondary surgery and the most pain free and expeditious rehabilitation. They would like to go ahead and proceed. The nature of the procedure, risk, benefits, anticipated rehab course were discussed. All questions are answered. Signed consent is in the chart. No guarantees given or implied. [facility]ITAL[facility]herri
[2018-01-03] MEDS ORDERED: SUGAMMADEX SOD 200 MG/2 ML SDV ONE (14:08)
[2018-01-03] MEDS ORDERED: MAGNESIUM HYDROXIDE* 30ML UDCP PO PRN (15:40)
[2018-01-03] MEDS ORDERED: PROMETHAZINE 25 MG/ML 1 ML AMP IVP PRN (15:40)
[2018-01-03] MEDS ORDERED: BISACODYL 10 MG SUPP PR PRN (15:40)
[2018-01-03] MEDS ORDERED: ACETAMINOPHEN 325 MG TAB PO PRN (15:40)
--- NOTE | 2018-01-03 16:09 | OPERATIVE REPORT 1 ---
EVENT DATE: January 03, 2018 SURGEON: Rolo Crystal MD ANESTHESIOLOGIST: Austyn Javed MD ANESTHESIA: General. PIT TANNER: Michael Robledo PA-C PREOPERATIVE DIAGNOSIS Right hip subcapital femoral neck fracture. POSTOPERATIVE DIAGNOSIS Right hip subcapital femoral neck fracture. PROCEDURE PERFORMED Right hip hemiarthroplasty for fracture. ESTIMATED BLOOD LOSS 300 mL DRAINS None. SPECIMENS None. COMPLICATIONS None apparent. IMPLANTS USED Valerie system with a [place] cemented hip stem size 3, a Unitrax +4 sleeve with the Unitrax head component 47 mm, a 14 mm distal stem centralizer, and a medium cement restrictor. INDICATIONS Klaudia is a 72-year-old woman who has broken her hip. Surgery is indicated to relieve pain, restore function, and allow early ambulation. DESCRIPTION OF PROCEDURE Patient taken to the operating room and placed supine on the operating table. General anesthesia is induced. Antibiotics and TXA are administered IV. Patient subsequently positioned in left lateral decubitus on a well-padded pegboard. Pelvis secured in a vertical position. All bony prominences and superficial nerves are well padded. Right hip girdle and lower extremity prepped and draped in the usual sterile fashion for hip arthroplasty. A small incision posterolateral approach is made and carried down through the skin and subcutaneous tissue to the deep fascia. The fascia is incised over the tip of the trochanter, extended distally in line with the femur, proximally in line with the mihir fibers. Mihir fibers are split bluntly. Trochanteric bursa is excised. Interval between the abductor and external rotator is identified, and a blunt retractor is used to protect the abductor mechanism. Now, a capsulotomy/tenotomy is made with the horizontal limb just above the piriformis. The external rotators and capsule are peeled off the posterolateral femur and tagged with #2 Vicryl for later anatomic reattachment. Fracture hematoma is evacuated. Femur is translocated anteriorly with a bone hook, and a corkscrew was used to penetrate the femoral head and remove this as a single large piece. This is sized and sized to be 47 mm. A cleanup cut is made 1.5 cm above the lesser trochanter to remove unstable bone. The rest of the neck is in good condition. All loose bone debris is cleared from the acetabulum. The acetabulum is in good condition. The ligamentum tear is removed. The rest of the acetabulum is not disturbed. The cookie cutter is used to resect the superior neck, and then a Charnley awl finds the canal. Tapered broaching is performed, starting at 00 and work up to 3 where adequate stability and fill of the canal is obtained. The canal brush and pulse lavage are used to clear all this debris. A cement restrictor is sized and placed a centimeter or two distal to the anticipated tip of the stem. A mix of methacrylate is made, and the stem is cemented, taking care to lateralize and assure appropriate anteversion in about 15 degrees. The component is fully seated and held until all the cement fully polymerizes. Trial reduction performed next with various neck lengths. The +4 is felt to be optimal for advent of soft tissue tension and stability. The central sleeve is placed, then the actual unipolar head. Maria taper is lavaged and dried and is impacted into position. Joint is reduced after cleaning the acetabulum, and pain cocktail is infiltrated throughout the hip. A gram of vancomycin powder is placed deep in the wound, and then the external rotators and posterior capsule are repaired anatomically through drill holes in the posterolateral femur. Deep fascia closed with #2 Ethibond, proximally with #2 Vicryl, subcutaneous tissue with 3-0 Vicryl, and skin with surgical alec. Xeroform 4 x 4's applied in a dry, sterile dressing and hip compression wrap. Patient is rolled supine. Abduction pillow is placed. She is awakened from anesthesia and taken to the recovery room in stable condition having tolerated the procedure well. Plan is for standard maria ines or DANNY protocol, posterior hip precautions, and weightbearing as tolerated. [facility]
[2018-01-03] MEDS ORDERED: APAP/HYDROCODONE 325/7.5 TAB PO PRN (16:30)
[2018-01-03] MEDS: ceFAZolin(*) 1 GM VIAL 1 GM in NS(*) 0.9% 100 ML ADDVANT BAG 100 ML IVPB SCH (20:57)
[2018-01-04] VITALS (16 sets, daily range): BP systolic 79–123; BP diastolic 47–62
[2018-01-04] MEDS: ceFAZolin(*) 1 GM VIAL 1 GM in NS(*) 0.9% 100 ML ADDVANT BAG 100 ML IVPB SCH ×2 (04:28→13:41)
[2018-01-04] MEDS: LEVOTHYROXINE SOD 0.05 MG TAB PO SCH (05:31)
--- NOTE | 2018-01-04 06:58 | Hospitalist Progress Note ---
Subjective Progress Notes Subjective No cp/sob. SBP in the 80-90's during the night. Physical Exam Vital Signs Date Time Temp Pulse Resp B/P (MAP) Pulse Ox O2 Delivery O2 Flow Rate FiO2 01/04/18 06:00 72 96/53 (67) 01/04/18 05:30 98 Nasal Cannula 2.0 01/03/18 16:45 20 01/03/18 16:45 99.3 Intake and Output 01/04/18 07:00 Intake Total 1750 ml Balance 1750 ml Intake Oral 100 ml IV Total 1650 ml # Voids 2 General Appearance: Alert, Awake, No Acute Distress Result Diagram: 01/03/1852701/03/18527 Assessment and Plan Problems: (1) Closed right hip fracture Assessment & Plan: She had a hemiarthroplasty done on 01/03. She has no h/o DVT/PE. She will be on ASA 325mg a day for blood clot prevention for 30 days after surgery. (2) Osteoporosis Status: Chronic Assessment & Plan: Likely contributed to hip Fx. (3) Chronic lymphoid leukemia Status: Chronic Assessment & Plan: Stable. Likely cause of leukocytosis. Will follow. (4) Hypothyroidism, unspecified Assessment & Plan: On chronic levothyroxine. Exam Sepsis Risk: No Definite Risk ALIREZA BELCHER MD Jan 04, 2018 06:58
[2018-01-04 07:50] LABS: PLATELET COUNT, AUTOMATED 130 K/uL (150-450)
[2018-01-04] MEDS: LIOTHYRONINE SODIUM 5 MCG TAB PO SCH (09:35)
[2018-01-04] MEDS: ASPIRIN 325 MG TAB PO SCH (09:35)
[2018-01-04] MEDS: POLYETHYLENE GLYCOL 17 GM PKT PO SCH (09:35)
[2018-01-04] MEDS: DOCUSATE SODIUM 100 MG CAP PO SCH ×2 (09:35→21:09)
--- NOTE | 2018-01-04 11:00 | RADIOLOGY IMAGING REPORT ---
FACILITY: [facility] [place] PATIENT NAME: Klaudia Pandey : 1945 MR: [id number] V: [id number] EXAM DATE: ORDERING PHYSICIAN: JUDI SANTACRUZ TECHNOLOGIST: Location: [facility] Patient: Klaudia Pandey : 1945 Visit/Account:[id number] Date of Sevice: 01/04/2018 PELVIS Indication: Right hip arthroplasty Comparison: None relevant Findings: Postoperative changes from right hip arthroplasty. The arthroplasty appears to be an articulating ali gnment. No visualized hardware complication. There is adjacent postoperative gas and overlying skin s taples. No visualized fractures. IMPRESSION: Unremarkable postoperative appearance of right hip arthroplasty. Report Dictated By: Frederick Gaviria MD at 01/04/2018 10:55 AM Report E-Signed By: Frederick Gaviria MD at 01/04/2018 10:56 AM WSN:[id number]
[2018-01-05 03:13] VITALS: BP 98/54
[2018-01-05] MEDS: LEVOTHYROXINE SOD 0.05 MG TAB PO SCH (05:43)
[2018-01-05] MEDS ORDERED: LIOTHYRONINE SODIUM 5 MCG TAB PO SCH (06:00)
--- NOTE | 2018-01-05 06:24 | Hospitalist Progress Note ---
Subjective Progress Notes Subjective She denies any current complaints - only some "stiffness" in her surgical site. Physical Exam Vital Signs Date Time Temp Pulse Resp B/P (MAP) Pulse Ox O2 Delivery O2 Flow Rate FiO2 01/05/18 03:19 87 01/05/18 03:13 71 13 98/54 (69) Nasal Cannula 1.0 01/04/18 23:07 98.4 Intake and Output 01/05/18 07:00 Intake Total 540 ml Balance 540 ml Intake Oral 440 ml IV Total 100 ml # Voids 4 General Appearance: Alert, Awake Result Diagram: 01/04/18 0743 01/04/18 0743 Assessment and Plan Problems: (1) Closed right hip fracture Assessment & Plan: She had a hemiarthroplasty done on 01/03. She has no h/o DVT/PE. She is on ASA 325mg a day for blood clot prevention for 30 days after surgery. (2) Osteoporosis Status: Chronic Assessment & Plan: Likely contributed to hip fracture. (3) Chronic lymphoid leukemia Status: Chronic Assessment & Plan: Stable. Likely cause of her leukocytosis. (4) Hypothyroidism, unspecified Assessment & Plan: On chronic levothyroxine. Exam Sepsis Risk: No Definite Risk MACIEL MARTIN MD Jan 05, 2018 06:24
[2018-01-05 06:51] VITALS: BP 115/70
[2018-01-05] MEDS: DOCUSATE SODIUM 100 MG CAP PO SCH (09:19)
[2018-01-05] MEDS: POLYETHYLENE GLYCOL 17 GM PKT PO SCH (09:19)
[2018-01-05] MEDS: ASPIRIN 325 MG TAB PO SCH (09:19)
[2018-01-05] MEDS ORDERED: ASPI-757 PO (11:53)
--- NOTE | 2018-01-05 11:57 | Hospitalist Depart ---
Discharge Summary Reason for Hosp/Final Diag: (1) Closed right hip fracture Hospital Course & Plan: She had a hemiarthroplasty done on 01/03. She has no h/o DVT/PE. She is on ASA 325mg a day for blood clot prevention for 30 days after surgery. (2) Osteoporosis Status: Chronic Hospital Course & Plan: Likely contributed to hip fracture. (3) Chronic lymphoid leukemia Status: Chronic Hospital Course & Plan: Stable. Likely cause of her leukocytosis. (4) Hypothyroidism, unspecified Hospital Course & Plan: On chronic levothyroxine. Departure Weight (Pounds): 117 Result Diagram: 01/04/1874201/04/18742 Condition: Improved Discharge: Home Discharge Instructions Home Meds Active Scripts Zolmitriptan (ZOLMITRIPTAN) 5 Mg Tablet, 2.5-5 MG PO DAILY PRN for MIGRAINE for 30 Days, #3 TAB Prov:STACIA SWAIN MD 07/23/17 Ipratropium/Albuterol Sulfate (IPRAT-ALBUT 0.5-3(2.5) MG/3 ML) 3 Ml Ampul.neb, 3 ML IH BID for 7 Days, #14 PETER Prov:STACIA SWAIN MD 05/24/17 Levothyroxine Sodium (LEVOTHYROXINE SODIUM) 50 Mcg Tablet, 1 TAB PO QDAY for 90 Days, #90 TAB 4 Refills Prov:STACIA SWAIN MD 02/22/17 Sumatriptan Succinate (SUMATRIPTAN SUCCINATE) 100 Mg Tablet, 1 TAB PO ONCE PRN for migraine for 30 Days, #9 TAB 4 Refills Prov:STACIA SWAIN MD 02/22/17 Reported Medications Calcium Carbonate (CALCIUM) 500 Mg Tablet, 500 MG PO BID 01/03/18 Liothyronine Sodium (CYTOMEL) 5 Mcg Tablet, 10 MCG PO QAM 01/03/18 Cholecalciferol (Vitamin D3) (VITAMIN D3) 5,000 Unit Capsule, 5000 UNIT PO QDAY, CAPSULE 01/03/18 Oxygen (OXYGEN) Inha, 2 L INH HS, L 12/06/16 Palmer-3 Fatty Acids/Fish Oil (FISH OIL 1,000 MG CAPSULE) 1 Each Capsule, 1 CAP PO BID, CAPSULE 11/11/13 Multivitamin (DAILY MULTIPLE VITAMIN) 1 Each Tablet, 1 TAB PO DAILY 11/11/13 Ubidecarenone/Vit E Acetate (CO Q-10 100 MG SOFTGEL) 1 Each Capsule, 1 CAP PO DAILY, CAPSULE 11/11/13 Discontinued Reported Medications Liothyronine Sodium (LIOTHYRONINE SODIUM) 10 Mcg/1 Ml Vial, 10 MCG IV, VIAL 01/02/18 Cholecalciferol (Vitamin D3) (VITAMIN D-3) 2,000 Unit Capsule, 1 CAP PO BID, CAPSULE 12/15/14 Liothyronine Sodium (CYTOMEL) 5 Mcg Tablet, 5 MCG PO DAILY 04/10/17 Minocycline Hcl (MINOCYCLINE HCL) 100 Mg Capsule, 1 CAP PO DAILY, CAPSULE 12/06/16 Vitamin B Complex (VITAMIN B COMPLEX) 1 Each Capsule, 1 EACH PO DAILY, CAPSULE 05/28/14 Discontinued Scripts Benzonatate 100 Mg Cap (TESSALON PERLE 100 MG CAP) 100 Mg Capsule, 100 MG PO TID PRN for cough for 5 Days, #15 CAP Prov:STACIA SWAIN MD 05/24/17 Diet: Regular Special Instructions: Follow up as instructed with Dr Crystal. Copies to: STACIA SWAIN MD ; Venous Thromboembolism Antithrombotics Is Pt On Any Antithrombotics?: Yes ([facility] only) ADÁN WARREN DO Jan 05, 2018 11:57
[2018-01-05 12:00] VITALS: BP 115/77
[2018-01-05] MEDS ORDERED: OXYC-865 PO (15:38)
== END 2018-01-05 16:45 | disposition home health service (06) | DRG 470 ==
LOC: ER 20:51 → MED 22:29
PROVIDERS: ADMIT Internal Medicine; ATTEND Internal Medicine
PROC: 0SRR0J9 Replacement of Right Hip Joint, Femoral Surface with Synthetic Substitute, Cemented, Open Approach (ICD-10-PCS; principal; 2018-01-03 13:16)
DX: M80.051A Age-related osteoporosis with current pathological fracture, right femur, initial encounter for fracture (principal); C91.10 Chronic lymphocytic leukemia of B-cell type not having achieved remission; K21.9 Gastro-esophageal reflux disease without esophagitis; K22.70 Barrett's esophagus without dysplasia; G43.909 Migraine, unspecified, not intractable, without status migrainosus; J45.909 Unspecified asthma, uncomplicated; E03.9 Hypothyroidism, unspecified; E78.5 Hyperlipidemia, unspecified; Z85.41 Personal history of malignant neoplasm of cervix uteri; W18.30XA Fall on same level, unspecified, initial encounter; Y92.009 Unspecified place in unspecified non-institutional (private) residence as the place of occurrence of the external cause; Y99.8 Other external cause status
CPT/HCPCS: 36415; 71045; 72170; 76942; 82040; 82247; 82310; 82374; 82435; 82565; 82947; 84075; 84132; 84155; 84295; 84450; 84460; 84520; 85025; 85610; 85730; 86850; 86900; 86901; 93005; 96374; 97161; 99284; C1713; C1776; J0171; J0690; J0735; J1100; J1170; J1885; J2001; J2250; J2405; J2704; J2795; J3010; J3370; J3490; J7030; J7050; J7060

== ENCOUNTER → 2018-02-03 | Outpatient (CLI) | payer MEDICARE, OTHER ==
[2018-01-03 11:07] VITALS: BMI 19.5
[~2018-02-03] MED LIST changes: +ASPI-757 PO; +CALC500T6 PO; +CHOL500016 PO; +OXYC-865 PO; +[UNRECOGNIZED DRUG - CODE] IV
== END ==
LOC: LAB 08:12
PROVIDERS: ATTEND Physician Assistant
DX: E03.9 Hypothyroidism, unspecified (principal); E78.00 Pure hypercholesterolemia, unspecified
CPT/HCPCS: 36415; 82465; 83718; 84439; 84443; 84478; 84481

== ENCOUNTER → 2018-02-25 | Outpatient (CLI) | payer MEDICARE, OTHER ==
[2018-01-03 11:07] VITALS: BMI 19.5
[~2018-02-25] MED LIST changes: +CHOL200022 PO; -CHOL200085 PO
--- NOTE | 2018-02-26 11:27 | RADIOLOGY IMAGING REPORT ---
FACILITY: [facility] PATIENT NAME: GREGORIO FREY : [id number] MR: [id number] V: [id number] EXAM DATE: [id number] ORDERING PHYSICIAN: STACIA SWAIN TECHNOLOGIST: Kim Toussaint PROCEDURE:BILATERAL DIGITAL SCREENING MAMMOGRAM WITH CAD ASSISTED INTERPRETATION & 3D TOMOSYNTHESIS COMPARISON:Prior mammograms dated 01/14/17, 01/12/16, 01/06/15, 12/15/14, 12/14/13, 12/11/12 INDICATIONS:screening FINDINGS: The breasts are heterogeneously dense which can obscure small masses. The parenchymal pattern has remained stable allowing for difference in mammographic technique & patient positioning. DIAGNOSTIC CATEGORY 1--NEGATIVE. RECOMMENDATIONS: ROUTINE MAMMOGRAM AND CLINICAL EVALUATION. IMPRESSION: BIRADS 1: Negative. No significant abnormality is seen. Dictated by: Paris Jett M.D. on 02/25/2018 at 17:07 Transcribed by: MANNY on 02/26/2018 at 10:15 Approved by: Paris Jett M.D. on 02/26/2018 at 11:26 [facility]
== END ==
LOC: MAMO 06:52
PROVIDERS: ATTEND Family Medicine
DX: Z12.31 Encounter for screening mammogram for malignant neoplasm of breast (principal)
CPT/HCPCS: 77063; 77067

== ENCOUNTER → 2018-03-27 | Outpatient (CLI) | payer MEDICARE, OTHER ==
[2018-01-03 11:07] VITALS: BMI 19.5
== END ==
LOC: LAB 07:55
PROVIDERS: ATTEND Physician Assistant
DX: E03.9 Hypothyroidism, unspecified (principal)
CPT/HCPCS: 36415; 84439; 84443; 84481

== ENCOUNTER → 2018-04-07 | Outpatient (CLI) | payer MEDICARE, OTHER ==
[2018-01-03 11:07] VITALS: BMI 19.5
== END ==
LOC: US 01:16
PROVIDERS: ATTEND Internal Medicine Cardiovascular Disease
DX: I34.0 Nonrheumatic mitral (valve) insufficiency (principal)
CPT/HCPCS: 93306

== ENCOUNTER → 2018-04-22 | Outpatient (CLI) | payer MEDICARE, OTHER ==
[2018-01-03 11:07] VITALS: BMI 19.5
[~2018-04-22] MED LIST changes: +ASCO-191 PO; +DICL-195 PO; +DOXY-181 PO; +LEVO88TA45 PO; +LUTE1CAP6 PO; +MAGN100T5 PO; +OMEG-108 PO; +OSE75 PO; +SELE200T32 PO; +VER40 PO; +VITA40TA PO; +ZINC30CA2 PO; +[UNRECOGNIZED DRUG - OTHER] PO
== END ==
LOC: LAB 10:29
PROVIDERS: ATTEND Family Medicine
DX: J09.X2 Influenza due to identified novel influenza A virus with other respiratory manifestations (principal)
CPT/HCPCS: 87502

== ENCOUNTER → 2018-06-03 | Outpatient (CLI) | payer MEDICARE, OTHER ==
[2018-01-03 11:07] VITALS: BMI 19.5
== END ==
LOC: LAB 08:00
PROVIDERS: ATTEND Internal Medicine Endocrinology, Diabetes & Metabolism
DX: E03.9 Hypothyroidism, unspecified (principal); M80.00XS Age-related osteoporosis with current pathological fracture, unspecified site, sequela
CPT/HCPCS: 36415; 82040; 82310; 82330; 82340; 82374; 82435; 82565; 82947; 83970; 84132; 84295; 84300; 84439; 84443; 84481; 84520; 86376; 86800

== ENCOUNTER → 2018-07-07 | Outpatient (CLI) | payer MEDICARE, OTHER ==
[2018-01-03 11:07] VITALS: BMI 19.5
[~2018-07-07] MED LIST changes: +ALBU8.5H IH; +CALC-638 PO; +FLUT1AER INH; +MECL12.5 PO; +TER20I
[2018-07-07 16:27] LABS: PLATELET COUNT, AUTOMATED 179 K/uL (150-450)
--- NOTE | 2018-07-07 17:09 | EKG ---
FACILITY: [facility] PATIENT NAME: GREGORIO FREY : [id number] MR: [id number] V: [id number] EXAM DATE: ORDERING PHYSICIAN: STEVE HEIN TECHNOLOGIST: BRIANNE Green Reason : Blood Pressure : / mmHG Vent. Rate : 087 BPM Atrial Rate : 087 BPM P-R Int : 184 ms QRS Dur : 088 ms QT Int : 390 ms P-R-T Axes : 077 -51 043 degrees QTc Int : 469 ms Sinus rhythm with occasional premature ventricular complexes Left axis deviation Anteroseptal infarct , age undetermined No ST-T abnormalities Relatively unchanged from previous Confirmed by ALIREZA BELCHER ([id number]) on 07/07/2018 7:17:06 PM Referred By: STEVE HEIN Confirmed By:ALIREZA BELCHER
== END ==
LOC: LAB 15:34
PROVIDERS: ATTEND Nurse Practitioner Primary Care
DX: I49.3 Ventricular premature depolarization (principal); R42 Dizziness and giddiness
CPT/HCPCS: 36415; 82040; 82247; 82310; 82374; 82435; 82565; 82728; 82947; 83540; 83550; 84075; 84132; 84155; 84295; 84450; 84460; 84520; 85025

== ENCOUNTER → 2018-08-05 | Outpatient (CLI) | payer MEDICARE, OTHER ==
[2018-01-03 11:07] VITALS: BMI 19.5
--- NOTE | 2018-08-05 14:10 | RADIOLOGY IMAGING REPORT ---
FACILITY: [facility] PATIENT NAME: Klaudia Pandey : 1945 MR: [id number] V: [id number] EXAM DATE: ORDERING PHYSICIAN: STEVE HEIN TECHNOLOGIST: Location: [facility] Patient: Klaudia Pandey : 1945 Visit/Account:[id number] Date of Sevice: 08/05/2018 RIBS LEFT INDICATION: COMPARISON: None available FINDINGS: Heart size within normal limits. There is no focal infiltrate or lobar consolidation. There is no pneumothorax or pleural effusion. There is a minimally displaced fracture of the left anterior third rib. IMPRESSION: 1. Minimally displaced fracture of the left anterior third rib Report Dictated By: Gab Caba at 08/05/2018 2:04 PM Report E-Signed By: Gab Caba at 08/05/2018 2:06 PM WSN:[id number]
== END ==
LOC: RAD 13:34
PROVIDERS: ATTEND Nurse Practitioner Primary Care
DX: S22.32XA Fracture of one rib, left side, initial encounter for closed fracture (principal)
CPT/HCPCS: 71100

== ENCOUNTER → 2018-09-12 | Outpatient (CLI) | payer MEDICARE, OTHER ==
[2018-01-03 11:07] VITALS: BMI 19.5
[2018-09-12 11:06] LABS: PLATELET COUNT, AUTOMATED 178 K/uL (150-450)
== END ==
LOC: LAB 09:56
PROVIDERS: ATTEND Internal Medicine Endocrinology, Diabetes & Metabolism
DX: M80.00XD Age-related osteoporosis with current pathological fracture, unspecified site, subsequent encounter for fracture with routine healing (principal)
CPT/HCPCS: 82040; 82310; 82374; 82435; 82565; 82947; 83735; 84100; 84132; 84295; 84520; 85025

== ENCOUNTER → 2018-09-12 | Outpatient (CLI) | payer MEDICARE, OTHER ==
[2018-01-03 11:07] VITALS: BMI 19.5
== END ==
LOC: LAB 09:46
PROVIDERS: ATTEND Psychiatry & Neurology Neurology
DX: R89.9 Unspecified abnormal finding in specimens from other organs, systems and tissues (principal); E03.9 Hypothyroidism, unspecified; Z79.899 Other long term (current) drug therapy
CPT/HCPCS: 36415; 82607; 84207; 84436; 84439; 84443; 84480; 84481